=== PATIENT | male | born 1985 | race Caucasian/White ===

== ENCOUNTER 2019-10-08 02:33 | Emergency (ER) | payer BC, SELFPAY ==
[2019-10-08 02:44] VITALS: BP 143/83; PULSE 87; RESP 14; TEMP 37.1; O2SAT 98; BMI 30.9
--- NOTE | 2019-10-08 02:52 | CT_ITS ---
PROCEDURE: CT LUMBAR SPINE WO CON CLINICAL HISTORY: injury after throwing harsh [place] Low back pain following injury COMPARISON: No exams were available for comparison TECHNIQUE: Axial images obtained with sagittal and coronal reformats. All CT scans at the facility use one or more dose reduction, viz: automated exposure control, ma/kV adjustment per patient size (including targeted exams where dose is matched to indication, i.e. head), or iterative reconstruction technique. FINDINGS: There is loss of disc space with endplate irregularity at L1-L2 with mild kyphosis at that level. Ventral osteophytes are present. There is minimal wedging of L2 with loss of height anteriorly of 15 percent. L2-L3: Mild bulging disc with small ventral osteophytes. L3-L4: 3 mm retrolisthesis of L3 with bulging disc slightly eccentric toward the left with small central disc protrusion. Mild bilateral foraminal narrowing. L4-5: Mild concentric bulging disc L5-S1: Mild concentric bulging disc Small sclerotic focus involves the left aspect of the ilium medially with small central lucency within the sclerotic area. No acute fracture or dislocation. IMPRESSION: 1. No acute fracture. 2. Multilevel lumbar spondylosis with bulging discs. Please see above for detailed description at each level. There is severe degenerative disc disease at L1-L2 with mild chronic wedging of L2. Bulging disc at L3-L4 eccentric toward the left with small central disc protrusion Dictated by: Leonard Toussaint MD 10/08/2019 08:12 Electronically signed by Leonard Toussaint MD in [place] 10/08/2019 08:12
--- NOTE | 2019-10-08 03:11 | PC.NURSE ---
Pt states he drinks everyday and does coke while on Suboxone.
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
[2019-10-08 03:50] VITALS: BP 140/86; PULSE 87; RESP 14; TEMP 37.1; O2SAT 98
== END 2019-10-08 03:52 | disposition home or self-care (01) ==
PROVIDERS: Emergency Provider Emergency Medicine; PCP Family Medicine
DX: M54.16 Radiculopathy, lumbar region (principal); F17.210 Nicotine dependence, cigarettes, uncomplicated
CPT/HCPCS: 72131; 96372; 99282

== ENCOUNTER 2021-05-18 15:45 | Emergency (ER) | payer BC, SELFPAY ==
[2021-05-18 15:46] VITALS: BP 160/100; PULSE 88; RESP 20; TEMP 36.8; O2SAT 100; BMI 30.3
[2021-05-18 16:23] VITALS: BMI 30.3
--- NOTE | 2021-05-18 16:24 | XR_ITS ---
PROCEDURE INFORMATION: Exam: XR Left Knee Exam date and time: 05/18/2021 4:24 PM Age: 35 years old Clinical indication: Pain; Knee; Left; Additional info: Fall TECHNIQUE: Imaging protocol: XR Left knee. Views: 3 views. COMPARISON: No relevant prior studies available. FINDINGS: Bones/joints: Osseous structures of the knee normal. No fracture. No joint effusion. Soft tissues unremarkable. Small joint effusion. Soft tissues: See Bones/joints finding. IMPRESSION: 1. Small joint effusion. 2. Normal knee.
--- NOTE | 2021-05-18 17:08 | HMH.EDGENADL ---
ED Disposition Clinical Impression: Effusion, left knee Left knee injury Qualifiers: Encounter type: initial encounter Qualified Code(s): S89.92XA - Unspecified injury of left lower leg, initial encounter Disposition: Home, Self-Care Condition on Discharge: Good Instructions: How to Use a Knee Immobilizer, How to Use Crutches, DI for Knee Sprain Additional Instructions: Knee immobilizer and crutches until seen by orthopedics for follow-up. Call orthopedics to arrange follow-up within 1 week. Ibuprofen for pain. Ice 20 minutes 4-5 times a day and elevate leg for swelling. Prescriptions: Ibuprofen [Ibuprofen 800mg Tablet] 800 mg PO Q8HP PRN #20 tab PRN Reason: Moderate Pain Transmission Status: Pending to [facility] Referrals: Ethan Dunaway [Primary Care Provider] - - Critical Care Critical Care Time: No Attestation: On 05/18/21, the high probability of a clinically significant, sudden or life threatening deterioration of the following system(s) required my full and direct attention, intervention and personal management. The time I documented below is in addition to time spent performing reported procedures but includes the following listed in this critical care notation. Medical Decision Making - Attila Inquiry Pt receiving controlled substance: No Vital Signs: 05/18/21 15:46 Temperature 98.3 F Temperature Source Oral Pulse Rate [Right Radial] 88 Respiratory Rate 20 Blood Pressure [Right Arm] 160/100 H Blood Pressure Mean [Right Arm] 120 Blood Pressure Source [Right Arm] Manual Cuff/ Doppler Blood Pressure Position [Right Arm] Sitting 02 Sat by Pulse Oximetry 100 Oxygen Delivery Method Room Air - Radiology Data #1 Image(s): Knee Image Reviewed: Yes I reviewed the patient's radiology image, Yes I have reviewed radiologist's interpretation Preliminary Findings: Abnormal (Effusion, no fracture or dislocation) Medical Decision Narrative: Patient is on Suboxone. He prefers ibuprofen for pain. Advised of need for follow-up with orthopedics. I suspect injury to ACL, MCL, medial meniscus. General Adult HPI - General Chief complaint: Extremity Injury, Lower Stated complaint: Poss dislocated L knee Time Seen by Provider: 05/18/21 17:00 Mode of Arrival: Wheelchair Limitations: No Limitations Description of Symptoms (Recalled from ER Triage Doc. by RN): Pt reports L knee pain, reports on 05/17 he was climbing over a fence and fell on ice. Pt reports pain has continued to worsen, states he tried to walk on it yesterday and pain has worsened. - History of Present Illness HPI narrative: Climbing over a fence yesterday his hands got caught on jie wire causing him to fall. He is not sure whether he landed on his foot or his knee, but since then has had left knee pain. He was able to walk on it yesterday, but is not able to walk on it today. Also has developed swelling today which was not present yesterday. No numbness or weakness. He says that his pain seems to be more concentrated laterally. - Related Data Home Medications Medication Instructions Recorded Confirmed Buprenorphine HCl/Naloxone HCl 1 each SL DAILY 10/08/19 10/08/19 [Suboxone 8 mg-2 mg Sl Film] Previous Rx's Medication Instructions Recorded Cyclobenzaprine HCl [Flexeril 10mg 10 mg PO TID PRN 7 Days #21 tab 10/08/19 tablet] Ketorolac Tromethamine [Toradol 10 mg PO Q6H 2 Days #8 tab 10/08/19 10mg tablet] predniSONE [Prednisone 20mg 20 mg PO BID #10 tab 10/08/19 Tab] Ibuprofen [Ibuprofen 800mg 800 mg PO Q8HP PRN #20 tab 05/18/21 Tablet] Allergies Allergy/AdvReac Type Severity Reaction Status Date / Time No Known Allergies Allergy Verified 10/08/19 02:51 [facility] History - Hepatitis A Screen Drug use history?: No High risk sexual behaviors?: No History of sexually transmitted infection?: No Currently employed?: No Childcare worker?: No Do you have
[2021-05-18 17:35] VITALS: BP 162/95; PULSE 74; RESP 20; TEMP 36.8; O2SAT 96
== END 2021-05-18 17:35 | disposition home or self-care (01) ==
PROVIDERS: Emergency Provider Emergency Medicine; PCP Family Medicine
DX: S89.92XA Unspecified injury of left lower leg, initial encounter (principal); W00.0XXA Fall on same level due to ice and snow, initial encounter; Y92.89 Other specified places as the place of occurrence of the external cause; F17.210 Nicotine dependence, cigarettes, uncomplicated
CPT/HCPCS: 29505; 73562; 99283

== ENCOUNTER 2022-09-13 14:53 | Emergency (ER) | payer BC, SELFPAY ==
[2022-09-13 14:55] VITALS: BP 140/81; PULSE 80; RESP 19; TEMP 36.8; O2SAT 96; BMI 39.3
--- NOTE | 2022-09-13 15:03 | XR_ITS ---
FINAL REPORT CLINICAL HISTORY: foot pain and swelling FINDINGS: Right foot Three views were obtained. There is no acute fracture or dislocation. The joint spaces appear normal. No soft tissue abnormality is identified. IMPRESSION: No acute process. Reviewed, Interpreted and Dictated by Narendra King III, MD Transcribed by Fatou Prabhakar Authenticated and [facility]
--- NOTE | 2022-09-13 15:33 | PC.NURSE ---
pt to rad via wheelchair
--- NOTE | 2022-09-13 15:34 | PC.NURSE ---
Patient to RAD
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
--- NOTE | 2022-09-13 15:38 | PC.NURSE ---
Patient back from [facility]
--- NOTE | 2022-09-13 16:33 | PC.NURSE ---
contacted rad to to check on status of xray read, states it is in a locked status
--- NOTE | 2022-09-13 16:38 | PC.NURSE ---
rounded on pt, notified pt waiting on xray results. pt resting in bed, states no needs at this time
[2022-09-13 16:42] VITALS: BP 140/84; PULSE 81; RESP 19; TEMP 36.8; O2SAT 96
== END 2022-09-13 16:53 | disposition home or self-care (01) ==
PROVIDERS: Emergency Provider Emergency Medicine; PCP Family Medicine
DX: M72.2 Plantar fascial fibromatosis (principal); V89.9XXA Person injured in unspecified vehicle accident, initial encounter; F17.210 Nicotine dependence, cigarettes, uncomplicated
CPT/HCPCS: 73630; 99283; 99284